=== PATIENT | female | born 1970 | race Two or more races ===

== ENCOUNTER 2019-11-30 09:35 | Emergency (ER) | payer OTHER ==
[~2019-11-30] VITALS: Ht 167.6 cm; Wt 76.2 kg
[2019-11-30] MEDS ORDERED: PROCENTRA5 MG/5 ML (09:49)
[2019-11-30] MEDS ORDERED: AVAPRO300 MG (09:49)
[2019-11-30] MEDS ORDERED: CLARITIN10 M1 (09:50)
[2019-11-30] MEDS ORDERED: KETO10TA2 PO (13:40)
[2019-11-30] MEDS ORDERED: HEMATOGEN FORT1 EACH PO (13:40)
[2019-11-30] MEDS ORDERED: NORFLEX100MG PO (13:40)
== END 2019-11-30 13:43 | disposition home or self-care (01) ==
LOC: ER 09:35
DX: M54.2 Cervicalgia (principal); R07.89 Other chest pain; Z20.828 Contact with and (suspected) exposure to other viral communicable diseases

== ENCOUNTER 2020-05-28 08:44 | Emergency (ER) | payer OTHER ==
[~2020-05-28] VITALS: Ht 167.6 cm; Wt 74.8 kg
[~2020-05-28 08:44] MED LIST: AVAPRO300 MG; CLARITIN10 M1; HEMATOGEN FORT1 EACH PO; KETO10TA2 PO; NORFLEX100MG PO; PROCENTRA5 MG/5 ML
[2020-05-28] MEDS ORDERED: NORFLEX100MG PO (12:20)
[2020-05-28] MEDS ORDERED: KETO10TA2 PO (12:20)
== END 2020-05-28 12:29 | disposition home or self-care (01) ==
LOC: ER 08:44
DX: R07.89 Other chest pain (principal); M54.2 Cervicalgia; F06.4 Anxiety disorder due to known physiological condition; Z11.52 Encounter for screening for COVID-19

== ENCOUNTER 2020-07-17 08:47 | Emergency (ER) | payer OTHER ==
[~2020-07-17] VITALS: Ht 165.1 cm; Wt 72.6 kg
[2020-07-17] MEDS ORDERED: SKELAXIN800 MG PO (12:41)
[2020-07-17] MEDS ORDERED: DICLOFENAC POTA50 MG PO (12:41)
== END 2020-07-17 12:50 | disposition home or self-care (01) ==
LOC: ER 08:47
DX: M62.830 Muscle spasm of back (principal)

== ENCOUNTER → 2020-09-17 | Emergency (ER) | payer OTHER ==
[~2020-09-17] VITALS: Ht 167.6 cm; Wt 72.6 kg
[~2020-09-17] MED LIST changes: +DICLOFENAC POTA50 MG PO; +SKELAXIN800 MG PO
== END | disposition home or self-care (01) ==
LOC: ER 10:56
DX: R10.84 Generalized abdominal pain (principal)

== ENCOUNTER 2021-01-17 10:23 | Emergency (ER) | payer OTHER ==
[~2021-01-17] VITALS: Ht 165.1 cm; Wt 72.1 kg
[2021-01-17] MEDS ORDERED: DICLOFENAC POTA50 MG PO (14:41)
[2021-01-17] MEDS ORDERED: CYCLOBENZAPRINE10 MG PO (14:41)
== END 2021-01-17 15:02 ==
LOC: ER 10:23
DX: M94.0 Chondrocostal junction syndrome [Tietze] (principal); M54.2 Cervicalgia

== ENCOUNTER 2021-03-18 16:07 | Emergency (ER) | payer OTHER ==
[~2021-03-18] VITALS: Ht 165.1 cm; Wt 72.6 kg
[~2021-03-18 16:07] MED LIST changes: +CYCLOBENZAPRINE10 MG PO
[2021-03-18] MEDS ORDERED: RELAFEN 750 MG (16:40)
[2021-03-18] MEDS ORDERED: AVAPRO300 MG (16:42)
[2021-03-18] MEDS ORDERED: FERROUS SULFAT325 MG PO (18:38)
[2021-03-18] MEDS ORDERED: STOOL SOFTENER50 MG PO (18:38)
== END 2021-03-18 18:41 | disposition home or self-care (01) ==
LOC: ER 16:07
DX: M54.50 Low back pain, unspecified (principal); D64.89 Other specified anemias; I10 Essential (primary) hypertension

== ENCOUNTER 2022-06-01 18:23 | Emergency (ER) | payer OTHER ==
[~2022-06-01] VITALS: Ht 165.1 cm; Wt 72.6 kg
[~2022-06-01 18:23] MED LIST changes: +FERROUS SULFAT325 MG PO; +RELAFEN 750 MG; +STOOL SOFTENER50 MG PO
== END 2022-06-01 22:06 | disposition home or self-care (01) ==
LOC: ER 18:23
DX: R10.9 Unspecified abdominal pain (principal)

== ENCOUNTER 2022-06-12 15:33 | Emergency (ER) | payer OTHER ==
[~2022-06-12] VITALS: Ht 165.1 cm; Wt 70.8 kg
== END 2022-06-12 18:41 | disposition home or self-care (01) ==
LOC: ER 15:33
DX: K29.70 Gastritis, unspecified, without bleeding (principal); Z88.6 Allergy status to analgesic agent

== ENCOUNTER 2022-09-20 17:50 | Emergency (ER) | payer OTHER ==
[~2022-09-20] VITALS: Ht 165.1 cm; Wt 70.3 kg
[2022-09-20] MEDS ORDERED: CELEBREX100 MG PO ×2 (22:36→22:39)
[2022-09-20] MEDS ORDERED: CYCLOBENZAPRINE10 MG PO (22:38)
== END 2022-09-20 22:48 | disposition home or self-care (01) ==
LOC: ER 17:50
DX: M62.838 Other muscle spasm (principal); Z88.8 Allergy status to other drugs, medicaments and biological substances

== ENCOUNTER 2024-08-03 10:47 | Inpatient (IN) | payer OTHER ==
[~2024-08-03] VITALS: Ht 167.6 cm; Wt 78.0 kg
[~2024-08-03 10:47] MED LIST changes: +CELEBREX100 MG PO; +ETODOLAC400 MG PO; +METHOCARBAMOL500 MG PO
[2024-08-03] MEDS ORDERED: ATACAND HCT 161 EACH PO (11:34)
[2024-08-03] MEDS ORDERED: SERTRALINE HCL25 MG PO (11:35)
[2024-08-03] MEDS ORDERED: CLONAZEPAM0.5 MG PO (11:35)
[2024-08-03] MEDS ORDERED: VERAPAMIL ER180 MG PO (11:35)
[2024-08-03] MEDS ORDERED: PROTONIX20 MG PO (11:36)
[2024-08-03] MEDS ORDERED: DICYCLOMINE HCL20 MG PO (11:36)
[2024-08-03] MEDS ORDERED: PEPCID AC20 MG PO (11:36)
[2024-08-03 11:37] VITALS: BP 144/86
[2024-08-03 11:41] VITALS: BP 150/90
[2024-08-03 13:20] LABS: RH POSITIVE
[2024-08-10] MEDS ORDERED: CEFAZOLIN SODIUM 1,000 MG VIAL ONE (13:17)
[2024-08-10] MEDS ORDERED: POVIDONE-IODINE 118 ML BOTT TOP ONE (13:40)
[2024-08-10] MEDS ORDERED: THROMBIN,HU/FIBRINOGEN/CALCIUM 10 ML SYRINGE TOP ONE (14:35)
[2024-08-10] MEDS ORDERED: KETOROLAC TROMETHAMINE 30 MG VIAL IV PRN (17:15)
[2024-08-10] MEDS ORDERED: MORPHINE SULFATE 4 MG/ML VIAL IV ONE ×2 (17:30→18:00)
[2024-08-10] MEDS ORDERED: ONDANSETRON HCL 2 MG/ML VIAL ONE (17:41)
[2024-08-10] MEDS ORDERED: ONDANSETRON HCL 2 MG/ML VIAL IV ONE (17:45)
[2024-08-10] MEDS ORDERED: RINGERS SOLUTION,LACTATED 1,000 ML IV SCH (19:15)
[2024-08-10] MEDS ORDERED: KETOROLAC TROMETHAMINE 30 MG VIAL ONE (20:08)
[2024-08-10] MEDS ORDERED: FAMOTIDINE/PF 20 MG/2 ML VIAL IV SCH (21:00)
[2024-08-10 21:49] VITALS: BP 144/86
[2024-08-11 01:58] VITALS: BP 140/87
[2024-08-11 07:02] LABS: BASO % 0.2 % (0.1-1.2); EOS # 0.01 (0.04-0.54); EOS % 0.1 % (0.7-7.0); HEMATOCRIT 31.6 % (34.1-44.9); LYMPH # 0.88 (1.18-3.74); LYMPH % 8.2 % (19.3-53.1); MEAN CORPUSCULAR HEMOGLOBIN 25.7 pg (25.6-32.2); MONO # 1.06 (0.24-0.82); MONO % 9.9 % (4.7-12.5); NEUT # 8.64 (1.56-6.13); NEUT % 80.9 % (34.0-71.1); PLATELET COUNT 164 K/uL (163-369); RED BLOOD COUNT 3.89 M/uL (3.93-5.22); RED CELL DISTRIBUTION WIDTH 17.1 % (11.6-14.4)
[2024-08-11 08:00] VITALS: BP 128/79
[2024-08-11] MEDS ORDERED: DOCUSATE SODIUM 100MG CAP PO SCH (09:00)
[2024-08-11] MEDS ORDERED: HYDROCHLOROTHIAZIDE 12.5 MG CAPSULE PO SCH (09:00)
[2024-08-11] MEDS ORDERED: PANTOPRAZOLE SODIUM 40 MG TABLET.DR PO SCH (09:00)
[2024-08-11] MEDS ORDERED: CANDESARTAN CILEXETIL 16 MG TABLET PO SCH (09:00)
[2024-08-11] MEDS ORDERED: VERAPAMIL HCL 180 MG CAP24H.PEL PO SCH (09:00)
[2024-08-11] MEDS ORDERED: SIMETHICONE 125 MG CAPSULE PO SCH (09:00)
[2024-08-11] MEDS ORDERED: KETOROLAC TROMETHAMINE 10 MG TABLET PO PRN (12:00)
[2024-08-11 16:09] VITALS: BP 146/80
[2024-08-11] MEDS ORDERED: TRAMADOL HCL 50 MG TABLET PO SCH (18:20)
[2024-08-11] MEDS ORDERED: ACETAMINOPHEN 500 MG GEL..CAP PO SCH (20:00)
[2024-08-11 20:21] VITALS: BP 130/71
[2024-08-11] MEDS ORDERED: FAMOtidine 20 MG TABLET PO SCH (21:00)
[2024-08-11] MEDS ORDERED: ACETAMINOPHEN 325 MG TABLET PO SCH (21:00)
[2024-08-12 02:08] VITALS: BP 100/64
[2024-08-12 06:02] VITALS: BP 99/65
[2024-08-12 08:00] VITALS: BP 98/57
[2024-08-12] MEDS ORDERED: VERAPAMIL HCL 180 MG TABLET.SA PO SCH (09:00)
[2024-08-12 16:00] VITALS: BP 108/74
[2024-08-12] MEDS ORDERED: TRAMADOL HCL50 MG PO (17:57)
== END 2024-08-12 18:18 | disposition home or self-care (01) | DRG 743 ==
LOC: SURH 08-10 07:00 → O/R 08-10 10:09 → SURH 08-10 11:15 → OB/GYN 08-10 20:27
PROVIDERS: ADMIT Obstetrics & Gynecology; ATTEND Obstetrics & Gynecology
PROC: 0UT20ZZ Resection of Bilateral Ovaries, Open Approach (ICD-10-PCS; 2024-08-10)
PROC: 0UT70ZZ Resection of Bilateral Fallopian Tubes, Open Approach (ICD-10-PCS; 2024-08-10)
PROC: 0UT90ZZ Resection of Uterus, Open Approach (ICD-10-PCS; principal; 2024-08-10 07:00)
DX: D25.0 Submucous leiomyoma of uterus (principal); D25.2 Subserosal leiomyoma of uterus; N80.03 Adenomyosis of the uterus; R10.2 Pelvic and perineal pain; N70.13 Chronic salpingitis and oophoritis; Z90.710 Acquired absence of both cervix and uterus; Z90.722 Acquired absence of ovaries, bilateral; Z90.79 Acquired absence of other genital organ(s)